=== PATIENT | male | born 1965 | race Hispanic/Latino ===

== ENCOUNTER → 2018-12-12 | Outpatient (CLI) | payer OTHER ==
--- NOTE | 2018-12-12 12:13 | Diagnostic Imaging Report ---
Right upper quadrant abdominal ultrasound, 12/12/2018. History: Abnormal LFTs. Comparison: None available. Discussion: Transverse and longitudinal images of the right upper quadrant of the abdomen were obtained demonstrating a liver of normal size but diffusely increased echogenicity measuring 13.5 cm in length. There is no evidence of a focal hepatic mass. The portal vein is patent with hepatopetal flow and is within normal limits measuring 8 mm in diameter. The biliary tree is within normal limits with the common bile duct measuring 3 mm in diameter. The gallbladder is normal without evidence of wall thickening or pericholecystic fluid. The sonographic Lauren's sign was negative. The right kidney is normal in size and echogenicity without evidence of hydronephrosis, stones, or mass and measures 12.2 cm in length. The pancreatic <body and tail> are visualized and are normal in appearance. The abdominal aorta is within normal limits. There is no evidence of free fluid. IMPRESSION: Diffuse fatty infiltration of the liver without focal hepatic abnormality. Otherwise unremarkable exam. Signed by: Roscoe Sandoval on 12/12/2018 12:09 PM
== END ==
LOC: US 11:05
PROVIDERS: ATTEND Family Medicine
DX: R74.8 Abnormal levels of other serum enzymes (principal)
CPT/HCPCS: 76705